=== PATIENT | female | born 1975 | race Caucasian/White ===

== ENCOUNTER 2022-02-23 17:53 | Outpatient (REF) | payer OTHER, SELFPAY ==
--- NOTE | 2022-02-23 16:45 | PAPFT_PTH ---
PATIENT: David Geiger LOC: [facility] U#:[id number] AGE/SX: 46/F ROOM: RE02/23/[address]: Krissy Stephenson : 1975 BED: DIS: 02/23/2022 SPEC #: [id number] RECD: 02/24/22 13:05 STATUS: ALICIA REJesus #: [id number] PRICILA: 02/23/22 16:[address]: Krissy Stephenson DEPT: [facility] Cytology RECD BY: Annemarie Gross Tissues: 1 - CX/ENDOCX FOR PAP SMEARS Procedures: PAP THIN PREP/[facility] Screening HPV DNA PROBE Comments: [id number] (CHLAMYDIA/GC)
[2022-02-23 21:16] LABS: Abs Immature Grans 0.04 10^3/uL (0.0-0.06); Absolute Basophil Count 0.07 10^3/uL (0.0-0.2); Absolute Lymphocyte Count 2.41 10^3/uL (1.2-3.4); Absolute Monocyte Count 0.66 10^3/uL (0.1-0.8); Absolute Neutrophil Count 5.15 10^3/uL (1.2-6.7); Basophils % 0.8; Eosinophils % 4.6; HCT 52.9 % (36.0-46.0); HGB 17.3 g/dL (11.2-15.7); Immature Grans % 0.5; Lymphocytes % 27.6; MCH 29.3 pg (27.0-33.0); MCHC 32.7 % (32.0-36.0); MCV 90 fL (80-95); Monocytes % 7.6; Neutrophils % 58.9; Platelet Count 253 10^3/uL (130-400); RBC 5.91 10^6/uL (3.93-5.22); RDW 13.2 % (11.7-14.6); RDW-SD 43.6 fL; WBC 8.73 10^3/uL (4.4-10.8)
[2022-02-23 21:28] LABS: ALT 23 U/L (14-59); AST 20 U/L (15-37); Alkaline Phosphatase 80 U/L (46-116); Anion Gap 10.9 mmol/L (3-11); BUN 12 mg/dL (7-18); Bilirubin, Total 0.3 mg/dL (0.2-1.0); CO2 25.1 mmol/L (21.0-32.0); CREATININE 0.8 mg/dL (0.55-1.02); Calcium 9.1 mg/dL (8.5-10.1); Chloride 104 mmol/L (98-107); Estimated GFR 90.83 (mL/min/1.73m2); Glucose 101 mg/dL (74-106); Lipase 63 U/L (73-393); Sodium 140 mmol/L (136-145); Total Protein 7.5 g/dL (6.4-8.2)
[2022-02-27 10:25] LABS: Hepatitis C Ab w Rflx HCV PCR Negative (Negative)
[2022-02-27 10:50] LABS: HIV-1/2 Ag & Ab Screen Negative (Negative)
[2022-02-27 17:54] LABS: Chlamydia Result Negative (Negative); GC Result Negative (Negative)
== END 2022-02-23 17:54 | disposition home or self-care (01) ==
LOC: NCHCN 17:53
PROVIDERS: Visit Provider Family Medicine
DX: R10.9 Unspecified abdominal pain (principal); Z11.3 Encounter for screening for infections with a predominantly sexual mode of transmission; Z11.4 Encounter for screening for human immunodeficiency virus [HIV]; Z11.59 Encounter for screening for other viral diseases; Z12.4 Encounter for screening for malignant neoplasm of cervix
CPT/HCPCS: 80053; 83690; 86803; 87389; 87491; 87591; 88142; 85025; 87480; 87510; 87624; 87660

== ENCOUNTER 2022-03-24 14:38 | Outpatient (REF) | payer OTHER, SELFPAY ==
[2022-03-24 15:05] LABS: Abs Immature Grans 0.04 10^3/uL (0.0-0.06); Absolute Basophil Count 0.08 10^3/uL (0.0-0.2); Absolute Eosinophil Count 0.29 10^3/uL (0.0-0.7); Absolute Lymphocyte Count 1.64 10^3/uL (1.2-3.4); Absolute Monocyte Count 0.65 10^3/uL (0.1-0.8); Absolute Neutrophil Count 4.61 10^3/uL (1.2-6.7); Basophils % 1.1; HCT 52.3 % (36.0-46.0); HGB 17.3 g/dL (11.2-15.7); Immature Grans % 0.5; Lymphocytes % 22.4; MCH 30.3 pg (27.0-33.0); MCHC 33.1 % (32.0-36.0); MCV 92 fL (80-95); MPV 11.4 fL (8.0-11.0); Monocytes % 8.9; Neutrophils % 63.1; Platelet Count 214 10^3/uL (130-400); RBC 5.71 10^6/uL (3.93-5.22); RDW-SD 46.8 fL; WBC 7.31 10^3/uL (4.4-10.8)
[2022-03-24 15:09] LABS: Iron 87 ug/dL (50-170); Total Iron Binding Capacity 366 ug/dL (250-450); Transferrin Sat 24 % (15-50)
[2022-03-24 15:36] LABS: Calculated LDL 225 mg/dL (<100); Cholesterol 308 mg/dL (<200); Ferritin 98 ng/mL (8-252); HDL Cholesterol 55 mg/dL (40-60); Triglyceride 144 mg/dL (<150)
== END 2022-03-24 14:39 | disposition home or self-care (01) ==
LOC: NCHCN 14:38
PROVIDERS: Visit Provider Registered Nurse
DX: E78.5 Hyperlipidemia, unspecified (principal); R78.89 Finding of other specified substances, not normally found in blood
CPT/HCPCS: 80061; 82728; 83540; 83550; 85025

== ENCOUNTER 2022-08-10 15:59 | Outpatient (REF) | payer OTHER, SELFPAY ==
[2022-08-10 20:43] LABS: Anion Gap 7.3 mmol/L (3-11); BUN 12 mg/dL (7-18); CO2 27.7 mmol/L (21.0-32.0); CREATININE 0.9 mg/dL (0.55-1.02); Calcium 9.5 mg/dL (8.5-10.1); Calculated LDL 142 mg/dL (<100); Chloride 106 mmol/L (98-107); Cholesterol 222 mg/dL (<200); Estimated GFR 78.86 (mL/min/1.73m2); Glucose 99 mg/dL (74-106); HDL Cholesterol 49 mg/dL (40-60); Potassium 4.2 mmol/L (3.5-5.1); Sodium 141 mmol/L (136-145); Triglyceride 156 mg/dL (<150)
[2022-08-10 20:44] LABS: Hemoglobin A1C 5.4 % (<5.7)
== END 2022-08-10 16:00 | disposition home or self-care (01) ==
LOC: NCHCN 15:59
PROVIDERS: Visit Provider Registered Nurse
DX: E78.5 Hyperlipidemia, unspecified (principal); R78.89 Finding of other specified substances, not normally found in blood; Z79.899 Other long term (current) drug therapy
CPT/HCPCS: 80048; 80061; 83036